=== PATIENT | female | born 1955 | race Caucasian/White ===

== ENCOUNTER 2017-03-05 10:16 | Emergency (ER) | payer OTHER ==
[2017-03-05] MEDS ORDERED: Ondansetron HCl/PF 4 MG/2 ML Vial ONE (11:07)
[2017-03-05 11:08] LABS: #Basophils 0.1 thou/uL (0.0-0.2); #Lymphocytes 1.2 thou/uL (1.20-3.40); #Monocytes 0.2 thou/uL (0.11-0.59); %Basophils 0.6 % (0.0-1.0); %Eosinophils 0.2 % (0.0-10.0); %Lymphocytes 12.5 % (21.0-51.0); %Monocytes 2.3 % (0.0-10.0); Hematocrit 49.4 % (36.0-47.0); Mean Platelet Volume 6.7 fL (7.4-10.4); White Blood Cell (WBC) Count 9.4 thou/uL (4.8-10.8)
[2017-03-05 11:13] LABS: Lactic Acid - Sepsis 1.3 mmol/L (0.5-2.2)
[2017-03-05 11:17] LABS: ALT (SGPT) 24 U/L (8-55); AST (SGOT) 27 U/L (5-34); Alkaline Phosphatase 62 U/L (40-150); Anion Gap 17 mmol/L (10-20); BUN (Urea Nitrogen) 11 mg/dL (9.8-20.1); Calc. Creatinine Clearance 0 mL/min (70-130); Calcium 10.8 mg/dL (7.8-10.44); Carbon Dioxide 23 mmol/L (22-29); Chloride 103 mmol/L (98-107); Estimated GFR-MDRD 69; Globulin 3.9 g/dL (2.4-3.5); Lipase 30 U/L (8-78); Protein, Total 9.1 g/dL (6.0-8.3)
[2017-03-05 11:20] LABS: Troponin I Less than 0.010 ng/mL (< 0.028)
--- NOTE | 2017-03-05 11:24 | RAD ---
PORTABLE CHEST 1 VIEW: DATE: 03/05/17. TIME: 11:02 a.m. HISTORY: Chest pain and vomiting. FINDINGS: The heart size is normal. The lungs are expanded without focal areas of consolidation, pneumothorax , or pleural effusions. IMPRESSION: No radiographic evidence of acute cardiopulmonary process. POS: [facility]
[2017-03-05 12:03] LABS: Bilirubin Negative (Negative); Blood, Urine Negative (Negative); Glucose, Urine (Dipstick) Negative (Negative); Ketone, Urine Negative (Negative); Nitrite Negative (Negative); Protein, Urine (Dipstick) Negative (Neg-Trace); Urobilinogen 0.2 mg/dL (0.2-1.0)
--- NOTE | 2017-03-05 12:25 | ULT ---
ABDOMINAL SONOGRAM: HISTORY: Upper abdomen pain. FINDINGS: Mobile nonshadowing foci are present within the dependent portion of the gallbladder lumen. There i s no gallbladder wall thickening or pericholecystic fluid. The common duct is 0.4 cm diameter. Live r is unremarkable without focal mass or intrahepatic biliary dilatation. No free fluid is evident. The spleen, kidneys, and visualized portions of the abdominal aorta, IVC, and pancreas have a sebas l sonographic appearance. IMPRESSION: Cholelithiasis. No evidence of acute biliary obstruction. POS: [facility]
== END 2017-03-05 13:18 | disposition home or self-care (01) ==
LOC: SCSER 10:16
DX: K80.20 Calculus of gallbladder without cholecystitis without obstruction (principal); F41.9 Anxiety disorder, unspecified; F32.9 Major depressive disorder, single episode, unspecified; Z87.891 Personal history of nicotine dependence; Z79.899 Other long term (current) drug therapy
CPT/HCPCS: 71010; 76700; 80053; 81003; 82553; 83605; 83690; 84484; 85025; 85379; 93005; 96361; 96374; 96375; J1170; J2405